=== PATIENT | female | born 1955 | race Caucasian/White ===

== ENCOUNTER 2017-01-07 09:39 | Emergency (ER) | payer OTHER ==
[2017-01-07 10:12] VITALS: BP 132/75
--- NOTE | 2017-01-07 11:38 | UC ---
Respiratory Complaint HPI - HPI Summary HPI Summary: Nasal congestion and constant cough since 3 days ago. Denies fever or trouble breathing. Needs note for work for a couple days. - History of Current Complaint Chief Complaint: UCGeneralIllness Stated Complaint: COUGH Time Seen by Provider: 01/07/17 11:04 Hx Obtained From: Patient ?: No Onset/Duration: Gradual Onset, Lasting Days Timing: Constant Severity Initially: Mild Severity Currently: Moderate Character: Cough: Productive Aggravating Factors: Deep Breaths, Recumbent Position Alleviating Factors: Upright Position Associated Signs And Symptoms: Positive: Nasal Congestion. Negative: Fever, Chills - Allergies/Home Medications Allergies/Adverse Reactions: Allergies Allergy/AdvReac Type Severity Reaction Status Date / Time Codeine Allergy Severe Vomiting Verified 03/04/14 15:59 Diazepam [From Valium] Allergy Severe Vomiting Verified 03/04/14 15:59 Loratadine [From Claritin] Allergy Severe Vomiting Verified 03/04/14 15:59 Amitriptyline Allergy Intermediate Dizziness Verified 03/04/14 15:59 Penicillins Allergy Intermediate Rash Verified 03/04/14 15:59 Home Medications: Home Medications Benzonatate CAP* [Tessalon CAP*] 200 mg 01/07/17 [History] Vitamin E 01/07/17 [History] PMH/Surg Hx/FS Hx/Imm Hx Endocrine History Of: Denies: Diabetes, Thyroid Disease Cardiovascular History Of: Denies: Cardiac Disorders, Hypertension, Pacemaker/ICD Respiratory History Of: Denies: COPD, Asthma GI/ History Of: Denies: Ulcer, Renal Disease Cancer History Of: Reports: Breast Cancer - LEFT BREAST - Surgical History Surgical History: Yes Surgery Procedure, Year, and Place: LEFT BREAST LUMPECTOMY, TONSILECTOMY, APPENDETOMY,EYE MUSCLE SURGERY - Family History Known Family History: Positive: Hypertension - Social History Occupation: Employed Full-time Lives: With Family Alcohol Use: Occasionally Substance Use Type: None Smoking Status (MU): Never Smoked Tobacco Review of Systems Constitutional: Negative Skin: Negative Eyes: Negative ENT: Nasal Discharge Respiratory: Cough Cardiovascular: Negative Gastrointestinal: Negative Genitourinary: Negative Motor: Negative Neurovascular: Negative Musculoskeletal: Negative Neurological: Negative Psychological: Negative All Other Systems Reviewed And Are Negative: Yes Physical Exam Triage Information Reviewed: Yes Appearance: Well-Appearing, No Pain Distress, Well-Nourished Vital Signs: Initial Vital Signs Temp 99.3 F 01/07/17 10:06 Pulse 94 01/07/17 10:06 Resp 18 01/07/17 10:06 BP 132/75 01/07/17 10:06 Pulse Ox 97 01/07/17 10:06 Vital Signs Reviewed: Yes Eye Exam: Normal Eyes: Positive: Conjunctiva Clear ENT: Positive: Hearing grossly normal, Nasal congestion, TMs normal Dental Exam: Normal Neck exam: Normal Neck: Positive: Supple, Nontender, No Lymphadenopathy Respiratory Exam: Other - constant cough Respiratory: Positive: Lungs clear, Normal breath sounds, No respiratory distress Cardiovascular Exam: Normal Cardiovascular: Positive: RRR, No Murmur Musculoskeletal Exam: Normal Neurological Exam: Normal Psychological Exam: Normal Skin Exam: Normal UC Diagnostic Evaluation - Laboratory O2 Sat by Pulse Oximetry: 97 Respiratory Course/Dx - Differential Dx/Diagnosis Provider Diagnoses: acute bronchitis Discharge - Discharge Plan Condition: Stable Disposition: HOME Patient Education Materials: Acute Bronchitis (ED) Forms: *Work Release Referrals: Jaclyn Anguiano MD [Primary Care Provider] - If Needed Additional Instructions: Increase your fluid intake. A cool mist humidifier may make your lungs more comfortable. An expectorant (cough medicine that loosens phlegm) can help. If you smoke, STOP!!! Recovery from bronchitis can be somewhat slow, but you should not have any significant worsening or new fevers. As long as you can breathe easily and you continue to have steady improvement, it is not important how many days it takes you to get better. Call or return if you develop increasing fever, shortness of breath, chest pain , bloody sputum, or otherwise worsen. If you have not improved at all after several days, contact your primary care physician or return here. Use your albuterol inhaler at bedtime and as needed during the day. You should continue to take your tessalon only if they are helping your cough.
== END 2017-01-07 11:30 | disposition home or self-care (01) ==
LOC: UCEAST 09:39
DX: J20.9 Acute bronchitis, unspecified (principal); Z88.5 Allergy status to narcotic agent; Z88.0 Allergy status to penicillin
CPT/HCPCS: 99211; G0463

== ENCOUNTER 2017-11-12 09:09 | Emergency (ER) | payer OTHER ==
[2017-11-12 09:27] VITALS: BP 106/66
--- OUTSIDE RECORDS SUMMARY | 2017-11-12 09:29 | XMS REPORT ---
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 Low 4.8-10.8 Red Blood Count 4.16 10^6/uL 4.0-5.4 Hemoglobin 13.7 g/dL 12.0-16.0 Hematocrit 40.3 % 35-47 Mean Corpuscular Volume 97 fL 80-97 Mean Corpuscular Hemoglobin 33 pg High 27-31 Mean Corpuscular HGB Conc 34 g/dL 31-36 Red Cell Distribution Width 12 % 10.5-15 Platelet Count 222 10^3/uL 150-450 Mean Platelet Volume 9 um3 7.4-10.4 Abs Neutrophils 3.3 10^3/uL 1.5-7.7 Abs Lymphocytes 0.9 10^3/uL Low 1.0-4.8 Abs Monocytes 0.4 10^3/uL 0-0.8 Abs Eosinophils 0.1 10^3/uL 0-0.6 Abs Basophils 0 10^3/uL 0-0.2 Abs Nucleated RBC 0 10^3/uL Granulocyte % 70.3 % 38-83 Lymphocyte % 19.6 % Low 25-47 Monocyte % 8.3 % 1-9 Eosinophil % 1.1 % 0-6 Basophil % 0.7 % 0-2 Nucleated Red Blood Cells % 0.1 Comp Metabolic Panel 08/12/2012 Sodium 140 mmol/L 133-145 Potassium 4.1 mmol/L 3.5-5.0 Chloride 103 mmol/L 101-111 Co2 Carbon Dioxide 30.0 mmol/L 22-32 Anion Gap 7.0 mmol/L 2-11 Glucose 110 mg/dL High 70-100 Blood Urea Nitrogen 9 mg/dL 6-24 Creatinine 0.60 mg/dL 0.50-1.40 BUN/Creatinine Ratio 15.0 8-20 Calcium 9.6 mg/dL 8.1-9.9 Total Protein 5.7 GM/DL Low 6.2-8.1 Albumin 3.7 GM/DL 3.6-5.4 Globulin 2.0 GM/DL 2-4 Albumin/Globulin Ratio 1.9 1-3 Egfr Non- 104.2 >60 Egfr 134.0 >60 11 Total Bilirubin 0.7 mg/dL 0.1-1.0 12 Alkaline Phosphatase 59 U/L 30-110 Alt 12 U/L Low 14-54 Ast 18 U/L 12-42 CBC Auto Diff 05/15/2012 White Blood Count 4.3 CUMM Low 4.8-10.8 Red Cell Count 4.23 CUMM 4.2-5.4 Hemoglobin 13.6 g/dL 12.0-16.0 Hematocrit 40 % 35-47 Mean Corpuscular Volume 95 um3 79-97 Mean Corpuscular Hemoglob 32 pg High 27-31 Mean Corpuscular HGB Cone 34 g/dL 32-36 Redcell Distribution WDTH 12 % 10.5-15 Platelet Count 231 CUMM 150-450 Mean Platelet Volume 9.1 um3 7.4-10.4 Gran % 65.9 % 38-83 Lymph % 23.6 % Low 25-47 Mononuclear % 9.1 % High 1-9 Eosinophil % 1.0 % 0-6 Basophil % 0.4 % 0-2 Abs Lymphs 1.0 1.0-4.8 Abs Mononuclear 0.4 0-0.8 Absolute Neutrophil Count 2.9 1.5-7.7 Abs Eosinophils 0 0-0.6 Abs Basophils 0 0-0.2 Comp Metabolic Panel 05/15/2012 Sodium 140 mmol/L 135-145 Potassium 4.9 mmol/L 3.5-5.0 Chloride 103 mmol/L 101-111 Co2 (Carbon Dioxide) 35.0 mmol/L High 22-32 Anion Gap 2.0 mmol/L 2-11 13 Glucose 91 mg/dL 70-100 BUN 8 mg/dL 6-24 Creatinine 0.7 mg/dL 0.50-1.40 One Over Creatinine 1.42 BUN/Creatinine Ratio 11.4 8-20 Calcium 9.5 mg/dL 8.1-9.9 Total Protein 5.5 GM/DL Low 6.2-8.1 Albumin 3.7 GM/DL 3.6-5.4 Globulin 1.8 GM/DL Low 2-4 Albumin/Globulin Ratio 2.1 1-3 Bilirubin Total 0.6 mg/dL 0.4-1.5 14 Alkaline Phosphatase 68 U/L 30-110 Alt (SGPT) 14 U/L 14-54 Ast (Sgot) 17 U/L 12-42 eGFR Non- 87.2 > 60 eGFR 112.1 > 60 15 Laboratory test finding 05/15/2012 CA 27-29 24.17 U/mL 3.5-38.6 16 CBC Auto Diff 02/03/2012 White Blood Count 4.1 CUMM Low 4.8-10.8 Red Cell Count 4.02 CUMM Low 4.2-5.4 Hemoglobin 13.5 g/dL 12.0-16.0 Hematocrit 39 % 35-47 Mean Corpuscular Volume 96 um3 79-97 Mean Corpuscular Hemoglob 34 pg High 27-31 Mean Corpuscular HGB Cone 35 g/dL 32-36 Redcell Distribution WDTH 12 % 10.5-15 Platelet Count 240 CUMM 150-450 Mean Platelet Volume 8.2 um3 7.4-10.4 Gran % 67.6 % 38-83 Lymph % 21.1 % Low 25-47 Mononuclear % 9.7 % High 1-9 Eosinophil % 1.2 % 0-6 Basophil % 0.4 % 0-2 Abs Lymphs 0.9 Low 1.0-4.8 Abs Mononuclear 0.4 0-0.8 Absolute Neutrophil Count 2.8 1.5-7.7 Abs Eosinophils 0.1 0-0.6 Abs Basophils 0 0-0.2 Comp Metabolic Panel 02/03/2012 Sodium 137 mmol/L 135-145 Potassium 3.9 mmol/L 3.5-5.0 Chloride 107 mmol/L 101-111 Co2 (Carbon Dioxide) 28.0 mmol/L 22-32 Anion Gap 2.0 mmol/L 2-11 17 Glucose 83 mg/dL 70-100 BUN 11 mg/dL 6-24 Creatinine 0.5 mg/dL Low 0.50-1.40 One Over Creatinine 2.00 BUN/Creatinine Ratio 22.0 High 8-20 Calcium 8.7 mg/dL 8.1-9.9 Total Protein 5.5 GM/DL Low 6.2-8.1 Albumin 3.8 GM/DL 3.6-5.4 Globulin 1.7 GM/DL Low 2-4 Albumin/Globulin Ratio 2.2 1-3 Bilirubin Total 0.9 mg/dL 0.4-1.5 18 Alkaline Phosphatase 50 U/L 30-110 Alt (SGPT) 17 U/L 14-54 Ast (Sgot) 21 U/L 12-42 eGFR Non- 128.6 > 60 eGFR 165.4 > 60 19 Laboratory test finding 02/03/2012 CA 27-29 22.84 U/mL 3.5-38.6 20 Ua - Non Micro (Fma) 12/20/2011 Appearance CLEAR Color YELLOW Glucose NEG Bilirubin NEG Ketones NEG SP Grav <=1.005 Blood NEG PH 5.5 Protein NEG Urobil 0.2 Nitrite NEG Leukocytes (Fma/CMC/Centrex) NEG Comp Metabolic Panel 10/28/2011 Sodium 137 mmol/L 135-145 Potassium 3.8 mmol/L 3.5-5.0 Chloride 101 mmol/L 101-111 Co2 (Carbon Dioxide) 31.0 mmol/L 22-32 Anion Gap 5.0 mmol/L 2-11 21 Glucose 78 mg/dL 70-100 BUN 12 mg/dL 6-24 Creatinine 0.6 mg/dL 0.50-1.40 One Over Creatinine 1.66 BUN/Creatinine Ratio 20.0 8-20 Calcium 9.1 mg/dL 8.1-9.9 Total Protein 6.2 GM/DL 6.2-8.1 Albumin 3.9 GM/DL 3.6-5.4 Globulin 2.3 GM/DL 2-4 Albumin/Globulin Ratio 1.7 1-3 Bilirubin Total 0.7 mg/dL 0.4-1.5 22 Alkaline Phosphatase 50 U/L 30-110 Alt (SGPT) 16 U/L 14-54 Ast (Sgot) 23 U/L 12-42 eGFR Non- 104.2 > 60 eGFR 134.0 > 60 23 Laboratory test finding 10/28/2011 FSH 51.52 MIU/ML 24 Lutenizing Hormone 25.38 MIU/ML 25 Estradiol < 20 pg/mL 26 Laboratory test finding 08/05/2011 CA 27-29 18.89 U/ml 3.5-38.6 27 Comp Metabolic Panel 08/05/2011 Sodium 140 mmol/L 135-145 Potassium 3.8 mmol/L 3.5-5.0 Chloride 107 mmol/L 101-111 Co2 (Carbon Dioxide) 27.0 mmol/L 22-32 Anion Gap 6.0 mmol/L 2-11 28 Glucose 92 mg/dL 70-100 BUN 9 mg/dL 6-24 Creatinine 0.6 mg/dL 0.50-1.40 One Over Creatinine 1.66 BUN/Creatinine Ratio 15.0 8-20 Calcium 8.6 mg/dL 8.1-9.9 Total Protein 5.4 GM/DL Low 6.2-8.1 Albumin 3.6 GM/DL 3.6-5.4 Globulin 1.8 GM/DL Low 2-4 Albumin/Globulin Ratio 2.0 1-3 Bilirubin Total 0.6 mg/dL 0.4-1.5 29 Alkaline Phosphatase 56 U/L 30-110 Alt (SGPT) 14 U/L 14-54 Ast (Sgot) 20 U/L 12-42 eGFR Non- 104.6 > 60 eGFR 134.5 > 60 30 CBC With Manual Diff 08/05/2011 White Blood Count 3.8 CUMM Low 4.8-10.8 Red Cell Count 4.11 CUMM Low 4.2-5.4 Hemoglobin 13.7 g/dL 12.0-16.0 Hematocrit 40 % 35-47 Mean Corpuscular Volume 97 um3 79-97 Mean Corpuscular Hemoglob 33 pg High 27-31 Mean Corpuscular HGB Cone 34 g/dL 32-36 Redcell Distribution WDTH 13 % 10.5-15 Platelet Count 177 CUMM 150-450 Mean Platelet Volume 8.4 um3 7.4-10.4 Polysegmented Neutrophil 55 % 38-83 Band Neutrophil 1 % 0-8 Lymphocyte 27 % 25-47 Monocyte 10 % 0-13 Eosinophil 5 % 0-6 Atypical Lymph 2 % 0-6 Absolute Neutrophil Count 2.1 Anisocytosis SLIGHT (HCG) Urine 03/14/2011 Specific [place] 1.019 1.010-1.030 Urine NEGATIVE Negative 31 Surgical Pathology 01/17/2011 Surgical <SEE 32 Pathology NOTE> Comprehensive 12/19/2010 Albumin 4.3 g/dL 3.8-5.5 Metabolic Prof Alk. Phos. 56 U/L 30-110 Alt (SGPT) 11 U/L 7-35 Ast (Sgot) 16 U/L 5-34 BUN 11 mg/dL 6-26 Calcium 9.5 mg/dL 8.6-10.2 Chloride 100 mEq/L 94-112 Creatinine 0.6 mg/dL 0.6-1.4 Carbon Dioxide 26 mEq/L 21-32 Glucose 101 mg/dL 70-105 Sodium 137 mEq/L 134-149 Total Bilirubin 0.6 mg/dL 0.2-1.3 Total Protein 6.3 g/dL 6.3-8.1 Potassium 4.2 mEq/L 3.6-5.5 Globulin 2.0 g/dL 2.0-4.8 A/G Ratio 2.1 Calc 0.6-2.2 BUN/Creat Ratio 18.6 Calc 8.0-36.0 Lipid Profile 12/19/2010 Cholesterol 188 mg/dL 120-200 HDL 66 mg/dL 30-85 Triglycerides 94 mg/dL 30-200 HDL Risk Factor 2.9 CALC Low 4.2-7.0 LDL (Calculated) 104 CALC 0-129 VLDL (Calculated) 19 mg/dL 0-50 Laboratory test finding 12/19/2010 TSH 3.94 mIU/L 0.50-6.00 CBC Electronic ([facility]) 12/19/2010 WBC 5.1 3.6-9.6 RBC 4.67 3.90-5.70 Hemoglobin (Fma/CMC/CTX) 15.3 g/dL 12.1 - 17.2 Hematocrit (Fma/CMC/CTX) 45.0 % 36.1 - 50.3 Platelets 230 10^3/ul 150-400 Lymph% 23.0 20.5-51.1 Mixed% 6.2 Neutrophils % 70 Mean Corpuscular Vol 96 82.2-97.4 Mean Corpuscular Hemoglobin 32.7 27.6-33.3 Mean Corpuscular Hemo Concen 33.9 32.0-36.0 RDW 10.8 Low 11.6-13.7 Mean Platelet Volume 7.2 6.5-11.0 Ua - Micro ([facility]) 12/07/2010 Appearance CLEAR Color YELLOW Glucose NEG Bilirubin NEG Ketones NEG SP Grav 1.015 Blood NEG PH 7.0 Protein NEG Urobil 0.2 Nitrite NEG Leukocytes (Fma/CMC/Centrex) SMALL Hyaline - /Lpf Granular - /Lpf WBC (a,Centrex) 8-12 RBC 0-1 Mucus - /Lpf Epith OCCASS /Lpf Bacteria RARE /Hpf Amorphous - /Lpf Crystals, Fluid (Fma/CMC/CTX) - Z#Comments - Laboratory test 12/07/2010 Thin Prep W/HPV(Lsil/ROSA MARIA/Asc) SEE NOTE 33 finding Comp Metabolic Panel 08/13/2010 Sodium 139 mmol/L 135-145 Potassium 3.7 mmol/L 3.5-5.0 Chloride 103 mmol/L 101-111 Co2 (Carbon Dioxide) 29.0 mmol/L 22-32 Anion Gap 7.0 mmol/L 2-11 34 Glucose 93 mg/dL 70-100 35 BUN 5 mg/dL Low 6-24 Creatinine 0.60 mg/dL 0.50-1.40 One Over Creatinine 1.60 BUN/Creatinine Ratio 8.3 8-20 Calcium 9.5 mg/dL 8.1-9.9 Total Protein 6.2 GM/DL 6.2-8.1 Albumin 4.1 GM/DL 3.6-5.4 Globulin 2.1 GM/DL 2-4 Albumin/Globulin Ratio 2.0 1-3 Bilirubin Total 0.7 mg/dL 0.4-1.5 36 Alkaline Phosphatase 54 U/L 30-110 Alt (SGPT) 17 U/L 14-54 Ast (Sgot) 19 U/L 12-42 eGFR Non- 111.6 > 60 eGFR 135.0 > 60 37 Laboratory test finding 08/13/2010 CA 27-29 22.50 U/ml 3.5-38.6 38 HCG () Urine Stat 01/25/2010 Specific [place] 1.014 1.010-1.030 Urine NEGATIVE Negative 39 CBC With Manual Diff 12/27/2009 White Blood Count 8.7 CUMM 4.8-10.8 Red Cell Count 4.75 CUMM 4.2-5.4 Hemoglobin 15.0 g/dL 12.0-16.0 Hematocrit 45 % 35-47 Mean Corpuscular Volume 94 um3 79-97 Mean Corpuscular Hemoglob 32 pg High 27-31 Mean Corpuscular HGB Cone 34 g/dL 32-36 Redcell Distribution WDTH 13 % 10.5-15 Platelet Count 286 CUMM 150-450 Mean Platelet Volume 7.5 um3 7.4-10.4 Polysegmented Neutrophil 67 % 38-83 Lymphocyte 28 % 25-47 Monocyte 4 % 0-13 Eosenophil 1 % 0-6 Absolute Neutrophil Count 5.8 RBC Morphology NORMAL Comp Metabolic Panel 12/27/2009 Sodium 139 mmol/L 135-145 Potassium 4.2 mmol/L 3.5-5.0 Chloride 105 mmol/L 101-111 Co2 (Carbon Dioxide) 28.0 mmol/L 22-32 Anion Gap 6.0 mmol/L 2-11 40 Glucose 91 mg/dL 70-100 41 BUN 8 mg/dL 6-24 Creatinine 0.70 mg/dL 0.50-1.40 One Over Creatinine 1.40 BUN/Creatinine Ratio 11.4 8-20 Calcium 9.7 mg/dL 8.1-9.9 42 Total Protein 6.2 GM/DL 6.2-8.1 Albumin 4.3 GM/DL 3.6-5.4 Globulin 1.9 GM/DL Low 2-4 Albumin/Globulin Ratio 2.3 1-3 Bilirubin Total 0.7 mg/dL 0.4-1.5 43 Alkaline Phosphatase 42 U/L 30-110 Alt (SGPT) 11 U/L Low 14-54 Ast (Sgot) 17 U/L 12-42 eGFR Non- 93.4 > 60 eGFR 113.0 > 60 44 Laboratory test finding 12/27/2009 CA 27-29 22.7 U/mL <=38.0 45 Surgical Pathology 12/04/2009 Surgical Pathology 46 <SEE NOTE> 1 FASTING 2 Assay by Chemiluminescence microparticle immunoassay on the [employer]. Values obtained with different methods or kits cannot be used interchangeably for patient monitoring. Results cannot be interpreted as absolute evidence of the presence or absence of malignancy. The test is not interpretable in . 3 Because ethnic data is not always readily available, this report includes an eGFR for both -Americans and non- Americans. The National Kidney Disease Education Program (NKDEP) does not endorse the use of the MDRD equation for patients that are not between the ages of 18 and 70, are , have extremes of body size, muscle mass, or nutritional status, or are non- or non-. According to the National Kidney Foundation, irrespective of diagnosis, the stage of the disease is based on the level of kidney function: Stage Description GFR(mL/min/1.73 m(2)) 1 Kidney damage with normal or decreased GFR 90 2 Kidney damage with mild decrease in GFR 60-89 3 Moderate decrease in GFR 30-59 4 Severe decrease in GFR 15-29 5 Kidney failure <15 (or dialysis) 4 Assay by Chemiluminescence microparticle immunoassay on the [employer]. Values obtained with different methods or kits cannot be used interchangeably for patient monitoring. Results cannot be interpreted as absolute evidence of the presence or absence of malignancy. The test is not interpretable in . 5 Because ethnic data is not always readily available, this report includes an eGFR for both -Americans and non- Americans. The National Kidney Disease Education Program (NKDEP) does not endorse the use of the MDRD equation for patients that are not between the ages of 18 and 70, are , have extremes of body size, muscle mass, or nutritional status, or are non- or non-. According to the National Kidney Foundation, irrespective of diagnosis, the stage of the disease is based on the level of kidney function: Stage Description GFR(mL/min/1.73 m(2)) 1 Kidney damage with normal or decreased GFR 90 2 Kidney damage with mild decrease in GFR 60-89 3 Moderate decrease in GFR 30-59 4 Severe decrease in GFR 15-29 5 Kidney failure <15 (or dialysis) 6 Because ethnic data is not always readily available, this report includes an eGFR for both -Americans and non- Americans. The National Kidney Disease Education Program (NKDEP) does not endorse the use of the MDRD equation for patients that are not between the ages of 18 and 70, are , have extremes of body size, muscle mass, or nutritional status, or are non- or non-. According to the National Kidney Foundation, irrespective of diagnosis, the stage of the disease is based on the level of kidney function: Stage Description GFR(mL/min/1.73 m(2)) 1 Kidney damage with normal or decreased GFR 90 2 Kidney damage with mild decrease in GFR 60-89 3 Moderate decrease in GFR 30-59 4 Severe decrease in GFR 15-29 5 Kidney failure <15 (or dialysis) 7 RUN DATE: 12/23/12 [facility] LAB LIVE PAGE 1 RUN TIME: [address] [place], [place] [address] Specimen Inquiry Name: YOTAE T : [address]: Jaclyn Anguiano MD Acct: [id number] Unit: [id number] AGE: 57 Location: [facility] Re12/21/12 SEX: F Status: REG REF SPEC: [id number] YADIRA: 12/21/[address] [facility] [address]: Jaclyn Anguiano MD REQ: [id number] RECD: 12/23/12 STATUS: SOUT _ ORDERED: IMAGE ANALYSIS FINAL DIAGNOSIS Negative for Intraepithelial lesion or Malignancy A. Ectocervical/Endocervical Specimen Adequacy: Satisfactory of evaluation Transformation zone component cannot be definitely identified due to presence of atrophy or other hormonal changes Patient Information: HPV: Thin Layer Pap Test w/reflex to high risk HPV DNA testing when ASCUS Actual Specimen Date: 12/21/12 Spec Date if unknown: 11/2010 Cautery: N IUD: N Lesion, grossly demonstrate: N Radiation Y/N? Y ?: N Post Menopausal?: Y Hysterectomy?: N Previous Abnormal Pap Smears?:Y If Yes, enter Diagnosis: long ago, done elsewhere, dx unknown Other Pertinent History: radiation for left breast cancer, 06/2010 Signed (signature on file) Tali Griffin, CT (ASCP) 12/23/12 1147 This Pap test was evaluated with the assistance of the [employer] Test Imaging System. Due to cytologic findings at the staff air defense officer microscope, comprehensive manual rescreening by a Conveyor Weigher Operator may be required. The Pap Smear is a screening test designed to aid in the detection of premalignant and malignant conditions of the uterine cervix. It is not a diagnostic procedure and should not be used as the sole means of detecting cervical cancer. Both false- positive and false- negative reports do occur. Depending on your risk status, a Pap smear shoudl be obtained and evaluated every 1-3 years. END OF REPORT * ML=Testing performed at Main Lab DEPARTMENT OF PATHOLOGY, [address] [place] [address] Gonzalo Lux M.D. Director [facility] Permit #[id number] 8 Because ethnic data is not always readily available, this report includes an eGFR for both -Americans and non- Americans. The National Kidney Disease Education Program (NKDEP) does not endorse the use of the MDRD equation for patients that are not between the ages of 18 and 70, are , have extremes of body size, muscle mass, or nutritional status, or are non- or non-. According to the National Kidney Foundation, irrespective of diagnosis, the stage of the disease is based on the level of kidney function: Stage Description GFR(mL/min/1.73 m(2)) 1 Kidney damage with normal or decreased GFR 90 2 Kidney damage with mild decrease in GFR 60-89 3 Moderate decrease in GFR 30-59 4 Severe decrease in GFR 15-29 5 Kidney failure <15 (or dialysis) 9 Assay by Chemiluminescence microparticle immunoassay on the [employer]. Values obtained with different methods or kits cannot be used interchangeably for patient monitoring. Results cannot be interpreted as absolute evidence of the presence or absence of malignancy. The test is not interpretable in . 10 Assay by Chemiluminescence microparticle immunoassay on the [employer]. Values obtained with different methods or kits cannot be used interchangeably for patient monitoring. Results cannot be interpreted as absolute evidence of the presence or absence of malignancy. The test is not interpretable in . 11 Because ethnic data is not always readily available, this report includes an eGFR for both -Americans and non- Americans. The National Kidney Disease Education Program (NKDEP) does not endorse the use of the MDRD equation for patients that are not between the ages of 18 and 70, are , have extremes of body size, muscle mass, or nutritional status, or are non- or non-. According to the National Kidney Foundation, irrespective of diagnosis, the stage of the disease is based on the level of kidney function: Stage Description GFR(mL/min/1.73 m(2)) 1 Kidney damage with normal or decreased GFR 90 2 Kidney damage with mild decrease in GFR 60-89 3 Moderate decrease in GFR 30-59 4 Severe decrease in GFR 15-29 5 Kidney failure <15 (or dialysis) 12 A metabolite of Naproxen, O-desmethylnaproxen, has been shown to interfere with the [facility] [facility] method for measuring total bilirubin. Samples from patients who have taken Naproxen have shown spurious elevation in total bilirubin levels. 13 Anion gap measurement may be of limited value in the presence of any alkalosis, especially in a combined acid base disorder. . 14 A metabolite of Naproxen, O-desmethylnaproxen, has been shown to interfere with the [place] method for measuring total bilirubin. Samples from patients who have taken Naproxen have shown spurious elevation in total bilirubin levels. 15 Because ethnic data is not always readily available, this report includes an eGFR for both -Americans and non- Americans. The National Kidney Disease Education Program (NKDEP) does not endorse the use of the MDRD equation for patients that are not between the ages of 18 and 70, are , have extremes of body size, muscle mass, or nutritional status, or are non- or non-. According to the National Kidney Foundation, irrespective of diagnosis, the stage of the disease is based on the level of kidney function: Stage Description GFR(mL/min/1.73 m(2)) 1 Kidney damage with normal or decreased GFR 90 2 Kidney damage with mild decrease in GFR 60-89 3 Moderate decrease in GFR 30-59 4 Severe decrease in GFR 15-29 5 Kidney failure <15 (or dialysis) 16 Assay by chemiluminescence microparticle immunoassay on the [employer]. Values obtained with different methods or kits cannot be used interchangeably for patient monitoring. Results cannot be interpreted as absolute evidence of the presence or absence of malignancy. The test is not interpretable in . 17 Anion gap measurement may be of limited value in the presence of any alkalosis, especially in a combined acid base disorder. . 18 A metabolite of Naproxen, O-desmethylnaproxen, has been shown to interfere with the Jendrassik-[place]ula method for measuring total bilirubin. Samples from patients who have taken Naproxen have shown spurious elevation in total bilirubin levels. 19 Because ethnic data is not always readily available, this report includes an eGFR for both -Americans and non- Americans. The National Kidney Disease Education Program (NKDEP) does not endorse the use of the MDRD equation for patients that are not between the ages of 18 and 70, are , have extremes of body size, muscle mass, or nutritional status, or are non- or non-. According to the National Kidney Foundation, irrespective of diagnosis, the stage of the disease is based on the level of kidney function: Stage Description GFR(mL/min/1.73 m(2)) 1 Kidney damage with normal or decreased GFR 90 2 Kidney damage with mild decrease in GFR 60-89 3 Moderate decrease in GFR 30-59 4 Severe decrease in GFR 15-29 5 Kidney failure <15 (or dialysis) 20 Assay by chemiluminescence microparticle immunoassay on the [employer]. Values obtained with different methods or kits cannot be used interchangeably for patient monitoring. Results cannot be interpreted as absolute evidence of the presence or absence of malignancy. The test is not interpretable in . 21 Anion gap measurement may be of limited value in the presence of any alkalosis, especially in a combined acid base disorder. . 22 A metabolite of Naproxen, O-desmethylnaproxen, has been shown to interfere with the Jendrassik-Manjula method for measuring total bilirubin. Samples from patients who have taken Naproxen have shown spurious elevation in total bilirubin levels. 23 Because ethnic data is not always readily available, this report includes an eGFR for both -Americans and non- Americans. The National Kidney Disease Education Program (NKDEP) does not endorse the use of the MDRD equation for patients that are not between the ages of 18 and 70, are , have extremes of body size, muscle mass, or nutritional status, or are non- or non-. According to the National Kidney Foundation, irrespective of diagnosis, the stage of the disease is based on the level of kidney function: Stage Description GFR(mL/min/1.73 m(2)) 1 Kidney damage with normal or decreased GFR 90 2 Kidney damage with mild decrease in GFR 60-89 3 Moderate decrease in GFR 30-59 4 Severe decrease in GFR 15-29 5 Kidney failure <15 (or dialysis) 24 NORMAL RANGE MALES 1 - 20 NORMALLY MENSTRUATING FEMALES - Follicular Phase 3 - 9 - Mid-Cycle Peak 4 - 23 - Luteal Phase 1 - 6 POSTMENOPAUSAL FEMALES 16 - 114 . 25 NORMAL RANGE MALES 2 - 12 NORMALLY MENSTRUATING FEMALES - Follicular Phase 1 - 18 - Mid-Cycle Peak 24 - 105 - Luteal Phase 0.6 - 20 POSTMENOPAUSAL FEMALES 15 - 62 . 26 EXPECTED RESULTS (pg/ml) MALES 20-75 POSTMENOPAUSAL FEMALES 20-88 NON FEMALES Mid-Follicular Phase 24-114 Periovulatory 62-534 Mid Luteal Phase 80-273 27 ASSAY BY CHEMILUMINESCENCE MICROPARTICLE IMMUNOASSAY ON THE [employer]. VAKUES OBTAINED WITH DIFFERENT METHODS OR KITS CANNOT BE USED INTERCHANGEABLY FOR PATIENT MONITORING. RESULTS CANNOT BE INTERPRETED ABSOLUTE EVIDENCE OF THE PRESENCE OR ABSENCE OF MALIGNANCY. THE TEST IS NOT INTERPRETABLE IN . 28 Anion gap measurement may be of limited value in the presence of any alkalosis, especially in a combined acid base disorder. . 29 A metabolite of Naproxen, O-desmethylnaproxen, has been shown to interfere with the Jendrassik-Manjula method for measuring total bilirubin. Samples from patients who have taken Naproxen have shown spurious elevation in total bilirubin levels. 30 Because ethnic data is not always readily available, this report includes an eGFR for both -Americans and non- Americans. The National Kidney Disease Education Program (NKDEP) does not endorse the use of the MDRD equation for patients that are not between the ages of 18 and 70, are , have extremes of body size, muscle mass, or nutritional status, or are non- or non-. According to the National Kidney Foundation, irrespective of diagnosis, the stage of the disease is based on the level of kidney function: Stage Description GFR(mL/min/1.73 m(2)) 1 Kidney damage with normal or decreased GFR 90 2 Kidney damage with mild decrease in GFR 60-89 3 Moderate decrease in GFR 30-59 4 Severe decrease in GFR 15-29 5 Kidney failure <15 (or dialysis) 31 If is still suspected, please repeat test after 48 to 72 hours. . 32 ---- RUN DATE: 01/21/11 [facility] NMI LIVE PAGE 1 RUN TIME: 1156 Specimen Inquiry RUN USER: INTERFACE -- Name: TAE RAM Status: REG REF Re01/17/11 Age/Sex: 55/F Unit#: [id number] Location: [address] [place] [address].O.B. : 59 -- Specimen: [id number] SOUT Spec Date: 01/17/[address]: Vince boyer MD Spec Type: SURGICAL P Received: 01/18/1148 Copies to: Africa ramos MD SPECIMEN CECAL BIOPSY HISTORY POST-OP DIAGNOSIS: Small polyp removed. CLINICAL INFORMATION: Screening colonoscopy. Colonoscopy to terminal ile um - prep good, small cecal polyp removed. GROSS DESCRIPTION The specimen is received in formalin labelled Tae Ram, Cecal Biopsy, and consists of one yellow tissue fragment measuring 0.2 x 0.3 x 0.2 cm. Submitted entirely, one cassette. DIAGNOSIS Colon, cecum, biopsy: Large intestinal mucosa with prominent lymphoid aggregate. Signed Electronically by: GONZALO LUX MD 01/21/11 1156 -- -- DEPARTMENT OF PATHOLOGY, [address] [place] [address] [facility] Permit #[id number] Micheline Romo M.D. Computer Systems Hardware Analyst Dir baumann -- [employer] DEPARTMENT OF PATHOLOGY or Extension [phone] MEDICAL PHYSICS TEACHER CYTOLOGY REPORT PATIENT: TAE RAM : 1955 AGE: 55 Y SEX: F ACCT: [id number] PROCEDURE DATE: 12/07/2010 DATE RECEIVED: 12/10/2010 REQUESTING PHYSICIAN: AFRICA GODINEZ MD LOCATION: [facility] Case No. [id number] CORRECTED REPORT: PREVIOUS REPORT HAD INCORRECT PROCEDURE DATE. KDK 12/10/10 PATIENT DATA: [id number] SPECIMEN SUBMITTED: * * (HPVII) THIN PREP W/HPV (LSIL/ASC/ROSA MARIA) * * ENDOCERVICAL RELEVANT HISTORY: LMP: ??/2009 Contraceptive: NONE Prev.normal: 2004 Comment: PREMENOPAUAL SPECIMEN ADEQUACY SATISFACTORY FOR EVALUATION, ENDOCERVICAL TRANSFORMATION ZONE COMPONENT PRESENT GENERAL CATEGORIZATION NEGATIVE FOR INTRAEPITHELIAL LESIONS OR MALIGNANCY ADDITIONAL COPIES SENT TO: Screened/Rescreened Electronically Signed Sign Out Date/Time: by: by: GORDON DAILEY, 12/10/2010 16:30 CT(ASCP) Thin Prep Pap tests are examined with an FDA-approved location-guidance system (20980). Performed @ [facility] [employer] [address] [place] [address] 34 Anion gap measurement may be of limited value in the presence of any alkalosis, especially in a combined acid base disorder. . 35 Note change in reference range as of 06/30/08. The change was based on recommendations from the [place] Diabetes Association. 36 A metabolite of Naproxen, O-desmethylnaproxen, has been shown to interfere with the Jendrassik-Manjula method for measuring total bilirubin. Samples from patients who have taken Naproxen have shown spurious elevation in total bilirubin levels. 37 Because ethnic data is not always readily available, this report includes an eGFR for both -Americans and non- Americans. The National Kidney Disease Education Program (NKDEP) does not endorse the use of the MDRD equation for patients that are not between the ages of 18 and 70, are , have extremes of body size, muscle mass, or nutritional status, or are non- or non-. According to the National Kidney Foundation, irrespective of diagnosis, the stage of the disease is based on the level of kidney function: Stage Description GFR(mL/min/1.73 m(2)) 1 Kidney damage with normal or decreased GFR 90 2 Kidney damage with mild decrease in GFR 60-89 3 Moderate decrease in GFR 30-59 4 Severe decrease in GFR 15-29 5 Kidney failure <15 (or dialysis) 38 ASSAY BY CHEMILUMINESCENCE MICROPARTICLE IMMUNOASSAY ON THE [employer] ADVIA CENTAUR. VAKUES OBTAINED WITH DIFFERENT METHODS OR KITS CANNOT BE USED INTERCHANGEABLY FOR PATIENT MONITORING. RESULTS CANNOT BE INTERPRETED ABSOLUTE EVIDENCE OF THE PRESENCE OR ABSENCE OF MALIGNANCY. THE TEST IS NOT INTERPRETABLE IN . 39 If is still suspected, please repeat test after 48 to 72 hours. . 40 Anion gap measurement may be of limited value in the presence of any alkalosis, especially in a combined acid base disorder. . 41 Note change in reference range as of 06/30/08. The change was based on recommendations from the [place] Diabetes Association. 42 Please note change in reference range effective 08 . 43 A metabolite of Naproxen, O-desmethylnaproxen, has been shown to interfere with the [place]endrassik-[place] method for measuring total bilirubin. Samples from patients who have taken Naproxen have shown spurious elevation in total bilirubin levels. 44 Because ethnic data is not always readily available, this report includes an eGFR for both -Americans and non- Americans. The National Kidney Disease Education Program (NKDEP) does not endorse the use of the MDRD equation for patients that are not between the ages of 18 and 70, are , have extremes of body size, muscle mass, or nutritional status, or are non- or non-. According to the National Kidney Foundation, irrespective of diagnosis, the stage of the disease is based on the level of kidney function: Stage Description GFR(mL/min/1.73 m(2)) 1 Kidney damage with normal or decreased GFR 90 2 Kidney damage with mild decrease in GFR 60-89 3 Moderate decrease in GFR 30-59 4 Severe decrease in GFR 15-29 5 Kidney failure <15 (or dialysis) 45 The testing method is a chemiluminometric immunoassay manufactured by [employer] and performed on the [employer] Adv[employer] Centaur. Values obtained with different assay methods or kits may be different and cannot be used interchangeably. Test results cannot be interpreted as absolute evidence for the presence or absence of malignant disease. Test Performed by: [facility] Dpt of Lab Med and Pathology [address] [place] [address] [place] [address] Dermatopathologist: Diallo Villa III, M.D. 46 ---- RUN DATE: 12/18/09 [facility] NMI LIVE PAGE 1 RUN TIME: 927 Specimen Inquiry RUN USER: INTERFACE -- Name: TAE RAM Status: REG REF Re12/04/09 Age/Sex: 54/F Unit#: [id number] [facility] -- Specimen: [id number] SOUT Spec Date: 12/04/[address]: Africa Hernandez MD Spec Type: SURGICAL P Received: 12/05/09 Copies to: Imelda fischer MD SPECIMEN 1) ULTRASOUND GUIDED CORE BIOPSY SAMPLE OF THE LEFT BREAST ELEVEN O'CLOCK POSITION 2) ULTRASOUND GUIDED CORE BIOPSY SAMPLE OF THE LEFT BREAST NINE O'CLOCK POSITION HISTORY CLINICAL INFORMATION: 1) Left breast nodule which shadows and is hypoecho ic with irregular margins measuring 1.2 x 1.7 x 1.1 cm 2) Left breast nodule w hich shadows and is hypoechoic with irregular margins measuring 2.3 x 1.7 x 1.6 cm GROSS DESCRIPTION 1) Specimen received in formalin labelled Tae Sundance, Breast Biopsy Eleven O'clock and consists of several, cylindrical, fibroadipose cores measuring in aggregate 1.5 x 0.8 x 0.4 cm. Submitted entirely, one cassette labelled one. 2) Specimen received in formalin labelled Tae Yo, Breast Biopsy Nine O'clock and consists of two, cylindrical fragments of fibroadipose tissue each measuring 2.0 x 0.3 x 0.3 cm. Submitted entirely, one cassette labelled two. DIAGNOSIS 1) Breast, left, eleven o'clock, ultrasound guided biopsy: A. Invasive ductal carcinoma. 1. Size: Atleast 0.7 cm. 2. Tumor extent distribution: Invasive ductal carcinoma is seen in three of three cores submitted, occupying the majority of the core volume. 3. Estimated Sadi Grade: a. Estimated Tubule Formation: 3. b. Estimated Nuclear Grade: 3. c. Estimated Mitotic Count: 1. Combined Sadi Histologic Grade: 2 (7/9 points). 4. Lymphatic/vascular invasion: Not seen. -- DEPARTMENT OF PATHOLOGY, [address] [place] [address] [facility] Permit #[id number] Gonzalo Lux M.D. Director Omar Servin M.D. Computer Systems Hardware Analyst Dir ibis -- -- RUN DATE: 12/18/09 [facility] NMI LIVE PAGE 2 RUN TIME: 927 Specimen Inquiry RUN USER: INTERFACE -- Name: TAE RAM Status: REG REF Re12/04/09 Age/Sex: 54/F Unit#: [id number] Location: [address] [place] [address]. : [birth year] -- -- CONTINUED -- DIAGNOSIS (Continued) 5. Perineural invasion: Not seen. 6. Necrosis: Focally present. B. Ductal carcinoma in situ (DCIS): Not seen. C. ER/KS and Her2/Blanche by immunohistochemistry with appropriate controls: 1. ER: Strongly posistive, in 80-90% cells. 2. KS: Positive in 80% cells. 3. Her2/Blanche: Pending. D. Microcalcifications: Not seen. E. Other findings: None. F. Predicted TNM Histopathological Stage: Atleast pT1bNX. 2) Breast, left, nine o'clock, ultrasound guided biopsy: A. Invasive ductal carcinoma. 1. Size: Atleast 1.1 cm. 2. Tumor extent distribution: Invasive ductal carcinoma is seen in two of two cores submitted, occupying the majority of the core volume. 3. Estimated Sadi Grade: a. Estimated Tubule Formation: 3. b. Estimated Nuclear Grade: 3. c. Estimated Mitotic Count: 1. Combined Sadi Histologic Grade: 2 (7/9 points). 4. Lymphatic/vascular invasion: Not seen. 5. Perineural invasion: Not seen. B. 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 1. Size: 0.2 cm. 2. Extent and Distribution: Focally seen. 3. Architectural Pattern: Solid. 4. Nuclear Grade: 3. 5. Necrosis: Present, comedo necrosis. C. ER/KS and Her2/Blanche by immunohistochemistry with appropriate controls: 1. ER: Strongly positive in 80% cells. 2. KS: Positive in 70% cells. 3. Her2/Blanche: Pending. D. Microcalcifications: Present in association with a dilated benign duct, but not with invasive or in situ malignancy. E. Other findings None. F. Predicted TNM Histopathological Stage: atleast pT1cNx. -- DEPARTMENT OF PATHOLOGY, [address] [place] [address] [facility] Permit #[id number] Gonzalo Lux M.D. Director Omar Servin M.D. Computer Systems Hardware Analyst Dir ibis -- -- RUN DATE: 12/18/09 [facility] NMI LIVE PAGE 3 RUN TIME: 927 Specimen Inquiry RUN USER: INTERFACE -- Name: TAE RAM Status: REG REF Re12/04/09 Age/Sex: 54/F Unit#: [id number] Location: [address] [place] [address]. : [birth year] -- -- CONTINUED -- ADDENDUM Addendum #1 Entered: 12/08/093519 The following immunohistochemical stains were performed at [facility] ([place], [place]) with appropriate controls and interpreted by [facility]: Her2/Blanche (Herceptest): Indeterminant (2+) on both parts 1 and 2. FISH will be performed and the results will be given in addendum. Addendum Review (signature on file) OMAR SERVIN 12/08/09 -- Addendum #2 Entered: 12/18/09 1) Her2/Blanche by FISH has been performed at [facility] in [place], [place]. The testing reveals: Patient Name: TAE RAM Collection Date: 12/04/2009 Ordering Physician: Omar Servin Received Date: 12/12/2009 Treating Physician: Eliza Report Date: 12/15/2009 Ordering Facility: [facility] Ref #: [id number] Specimen ID #: [id number] Date of ,Sex: 1955, F Fluorescence in situ Hybridization (FISH) Report HER-2/blanche Result: NOT AMPLIFIED The Her-2/lashell 17 ratio=1.0 Specimen Site/Type: Breast Tissue Specimen Fixative Type: Formalin Duration of Fixation: 12 hours Indication for Study: Evaluate for Her-2/blanche Gene Amplification -- DEPARTMENT OF PATHOLOGY, [address] [place] [address] [facility] Permit #[id number] Gonzalo Lux M.D. Director Micheline Haines ibis -- -- RUN DATE: 12/18/09 [facility] NMI LIVE PAGE 4 RUN TIME: 927 Specimen Inquiry RUN USER: INTERFACE -- Name: TAE RAM Status: REG REF Re12/04/09 Age/Sex: 54/F Unit#: [id number] Location: [facility] : [birth year] -- -- CONTINUED -- ADDENDUM (Continued) The average of Her-2/blanche copies per tile: 4.2 The average of cen17 copies per tile: 4.3 The cutoff point for assessing Her-2/blanche gene amplification is a Her-2/cen17 ratio greater than 2.2. The specimen is considered NOT AMPLIFIED for the Her-2/blanche gene. A total of 315 tiles from this patient's tissue were analyzed by the [employer] Auto[employer]ysion System and were sufficient for analysis. FISH was performed using the [employer]? HER-2 DNA Probe Kit. Probe Name Detection Parameters Result [facility] PathVysion amplification of the HER-2 gene NOT AMPLIFIED nuc ruthann(D17Z1,HER-2)x4 2) Her2/Blanche by FISH has been performed at [facility] in [place], [place]. The testing reveals: Patient Name: TAE RAM Collection Date: 12/04/2009 Ordering Physician: Omar Servin Received Date: 12/12/2009 Treating Physician: Eliza Report Date: 12/13/2009 Ordering Facility: [facility] Ref #: [id number] Specimen ID #: [id number] Date of ,Sex: 1955, F Fluorescence in situ Hybridization (FISH) Report HER-2/blanche Result: NOT AMPLIFIED The Her-2/lashell 17 ratio=1.0 Specimen Site/Type: Breast Tissue Specimen Fixative Type: Formalin Duration of Fixation: 12 Hours -- DEPARTMENT OF PATHOLOGY, [address] [place] [address] [facility] Permit #[id number] Gonzalo Lux M.D. Director Omar Servin M.D. Computer Systems Hardware Analyst Dir ibis -- -- RUN DATE: 12/18/09 [facility] NMI LIVE PAGE 5 RUN TIME: 927 Specimen Inquiry RUN USER: INTERFACE -- Name: TAE RAM Matilde Status: REG REF Re12/04/09 Age/Sex: 54/F Unit#: [id number] Location: [address] [place] [address]. : 59 -- -- CONTINUED -- ADDENDUM (Continued) Indication for Study: Evaluate For Her2/blanche Gene Amplification The average of Her-2/blanche copies per tile: 3.1 The average of cen17 copies per tile: 3.0 The cutoff point for assessing Her-2/blanche gene amplification is a Her-2/cen17 ratio greater than 2.2. The specimen is considered NOT AMPLIFIED for the Her-2/blanche gene. A total of 224 tiles from this patient's tissue were analyzed by the [employer] Auto[employer]ion System and were sufficient for analysis. FISH was performed using the [employer]? HER-2 DNA Probe Kit. Probe Name Detection Parameters Result [facility] [employer]ion amplification of the HER-2 gene NOT AMPLIFIED nuc ruthann(D17Z1,HER-2)x3 (Original [facility] report available upon request by calling Pathology at [phone]). Addendum Review (signature on file) GONZALO LUX MD 12/18/09 -- Signed Electronically by: OMAR SERVIN 12/06/09 1445 -- -- DEPARTMENT OF PATHOLOGY, [address] [place] [address] [facility] Permit #[id number] Gonzalo Lux M.D. Director Omar Servin M.D. Computer Systems Hardware Analyst Dir ibis -- Procedures Date CPT Code Description Status 03/10/2017 Mammogram Completed 03/25/2016 94851 Vision Test- screening test of visual acuity, Completed quantitative, bila 02/20/2015 Mammogram Completed 10/25/2014 29084 Remove Impacted Cerumen Completed 08/10/2014 Bone Mineral Density Test Completed 02/14/2014 Mammogram Completed 09/28/2013 98266 Pulse Oximetry Completed 12/21/2012 90324 Vision Test- screening test of visual acuity, Completed quantitative, bila 08/05/2011 Mammogram Completed 03/08/2011 Mammogram Completed 01/17/2011 Colonoscopy Completed 12/29/2009 Mammogram Completed 12/04/2009 Mammogram Completed 12/01/2009 Mammogram Completed 04/01/2001 62949 Remove Impacted Cerumen Completed Encounters Type Date Location Provider CPT E/M Dx Office Visit 06/10/2016 11:20a Main Office Jaclyn Anguiano M.D. 16831 E78.2 E55.9 R05 Office Visit 03/25/2016 6:50p Main Office Jaclyn Anguiano M.D. 74490 Z00.00 M54.5 M25.512 C50.912 E55.9 K21.9 Office Visit 03/05/2016 2:00p Main Office Quentin Saucedo 84124 J20.9 Office Visit 04/18/2015 11:20a [facility] Jaclyn Anguiano M.D. 22009 786.2 Office Visit 03/13/2015 6:30p Main Office Jaclyn Anguiano M.D. 85216 726.19 Office Visit 12/21/2014 4:00p [place] [address] 726.19 724.2 719.45 783.21 Office Visit 10/25/2014 3:45p [facility] Jonathan Ortiz-C 20356 380.4 Office Visit 09/08/2014 3:40p [facility] Jaclyn Anguiano M.D. 84770 726.19 V06.1 v06.5 v04.81 Office Visit 01/13/2014 9:10a [facility] Chandler Chavis M.D. 27038 535.50 Office Visit 09/28/2013 4:00p [facility] Alfie Ribeiro M.D. 28480 477.9 v04.81 Office Visit 12/21/2012 5:30p Main Office Jaclyn Anguiano M.D. 16135 V70.0 V72.31 174.9 V72.0 Office Visit 06/10/2012 10:00a [facility] Office Jade Sharp M.D. 84188 311 333.1 Office Visit 02/21/2012 3:00p [facility] Jade Sharp, 75212 333.1 M.D. Office Visit 02/17/2012 6:00p Main Office Jaclyn Anguiano M.D. 43057 719.45 Office Visit 12/20/2011 2:00p [facility] Jade Sharp, 70105 V70.0 M.D. 311 719.41 174.9 333.1 Office Visit 09/27/2011 2:40p [facility] Jade Sharp M.D. 88861 692.2 v04.81 719.41 Office Visit 06/06/2011 10:00a [facility] Africa Godinez, 86582 401.1 M.D. 311 530.81 Office Visit 04/25/2011 1:15p [facility] Imelda Cerrato [facility] 47417 923.9 Office Visit 12/07/2010 2:00p [facility] Africa Godinez, 85960 791.7 M.DJay V70.0 V72.31 174.9 Office Visit 09/20/2010 10:40a [facility] Africa Godinez 54987 611.79 M.D. Office Visit 11/30/2009 4:30p [facility] Office Imelda Baldwinrer, [facility] 79230 611.72 V04.81 Office Visit 09/19/2009 10:30a [facility] Jonathan Ortiz-C 95056 465.9 Office Visit 03/17/2008 3:20p [facility] Javi Pena M.D. 80959 724.2 Office Visit 03/03/2008 2:40p [facility] Javi Pena M.D. 28354 724.2 719.45 Office Visit 03/13/2006 3:30p [facility] Office Imelda Cerrato, [facility] 38372 536.8 380.4 Office Visit 09/16/2001 4:10p [facility] Sidney Upton M.D. 63630 Office Visit 11/28/2000 4:00p Main Office Sidney Upton M.D. 25588 Office Visit 10/15/2000 4:10p [facility] Sidney Upton M.D. 48980 Plan of Care 10/28/2017 - Jaclyn Anguiano M.D.Z00.00 Encntr for general adult medical exam w/o abnormal findingsComments:You are in excellent general health. I recommend regular physical exams with attention to good nutrition and exercise, eye exams every other year, and dental exams twice yearly. ~B_~U_Goals:~u_~b_2 fresh fruits daily3 helpings of fresh green and multicolored vegetablesEat from the whole color spectrum. 40-60 Oz water daily~B_~U_MOVE YOUR BODY.~u_~b_ Bodies were made to be moved. exercise 30 minutes at least 4-5 times weeklyFollow up:12-18 months.C50.912 Malignant neoplasm of unspecified site of left female breastComments:continue to follow up with Dr. Mackay.K21.9 Gastro- esophageal reflux disease without esophagitisComments:stable. continue occaissional omeprazole as needed.E55.9 Vitamin D deficiency, unspecifiedComments:continue your vitamin D.AllComments:~B_~U_Medication Management~b_~u_ Patient Understands medications she's taking? Yes No Are there Barriers to Adherence? Yes No Has the patient been asked about herbal supplements and therapies, and OTC meds? Yes No
[2017-11-12] MEDS ORDERED: Aspirin Low Dose CHEW TAB* 81 MG PO ONE (09:42)
--- NOTE | 2017-11-12 09:49 | UC ---
Cardiac HPI - HPI Summary HPI Summary: SUDDEN ONSET OF DULL MID STERNAL CP YESTERDAY AROUND 4:30PM WHILE AT REST. WORSE WITH BENDING OVER. TOOK PPI THINKING IT WAS REFLUX BUT THAT DID NOT HELP. PAIN WOKE HER FROM SLEEP SEVERAL TIMES LAST NIGHT. DENIES SOB, NAUSEA, SWEATS, FEVER. NO PERSONAL OR FAMILY H/O HEART DISEASE. - History of Current Complaint Chief Complaint: UCChestPain Stated Complaint: CHEST PAIN Time Seen by Provider: 11/12/17 09:24 Hx Obtained From: Patient, Family/Slime Plant Operator - Onset/Duration: Sudden Onset, Lasting Hours, Still Present Timing: Constant Initial Severity: Moderate Current Severity: Moderate Pain Intensity: 6 Chest Pain Location: Mid Sternal Character: Dull/Aching Aggravating Factor(s): Position Alleviating Factor(s): Nothing Associated Signs & Symptoms: Positive: Chest Pain. Negative: Numbness, Tingling , Dizziness, SOB, Fever, Diaphoresis, Nausea/Vomiting, Cough, Back Pain - Allergy/Home Medications Allergies/Adverse Reactions: Allergies Allergy/AdvReac Type Severity Reaction Status Date / Time Codeine Allergy Severe Vomiting Verified 11/12/17 09:27 Diazepam [From Valium] Allergy Severe Vomiting Verified 11/12/17 09:27 Loratadine [From Claritin] Allergy Severe Vomiting Verified 11/12/17 09:27 Amitriptyline Allergy Intermediate Dizziness Verified 11/12/17 09:27 Penicillins Allergy Intermediate Rash Verified 11/12/17 09:27 Home Medications: Home Medications Calcium Carbonate CHEW TAB* [Tums*] 1,000 mg PO BID 11/12/17 [History Confirmed 11/12/17] Cholecalciferol [Vitamin D3] 1,000 unit PO 11/12/17 [History] Omeprazole 40 mg PO 11/12/17 [History] PMH/Surg Hx/FS Hx/Imm Hx Cancer History: Breast Cancer - Surgical History Surgical History: Yes Surgery Procedure, Year, and Place: LEFT BREAST LUMPECTOMY, TONSILECTOMY, APPENDETOMY,EYE MUSCLE SURGERY - Family History Known Family History: Negative: Cardiac Disease, Hypertension - Social History Alcohol Use: Occasionally Substance Use Type: None Smoking Status (MU): Never Smoked Tobacco Review of Systems Constitutional: Negative Respiratory: Negative Cardiovascular: Chest Pain Gastrointestinal: Negative All Other Systems Reviewed And Are Negative: Yes Physical Exam Triage Information Reviewed: Yes Appearance: Well-Appearing, No Pain Distress, Well-Nourished Vital Signs: Initial Vital Signs Temp 99.5 F 11/12/17 09:18 Pulse 86 11/12/17 09:18 Resp 18 11/12/17 09:18 BP 106/66 11/12/17 09:18 Pulse Ox 100 11/12/17 09:18 Vital Signs Reviewed: Yes Eyes: Positive: Conjunctiva Clear ENT: Positive: Hearing grossly normal, TMs normal Neck: Positive: Supple, Nontender, No Lymphadenopathy Respiratory Exam: Normal Cardiovascular Exam: Normal Abdomen Description: Positive: Soft Musculoskeletal: Positive: No Edema Neurological: Positive: Alert Psychological: Positive: Age Appropriate Behavior Skin: Negative: rashes Diagnostics - EKG Cardiac Rate: NL Cardiac Rhythm: Sinus: Normal - 89 BPM Ectopy: None ST Segment: Normal - Assessment/Plan Course Of Treatment: TO [facility] BY PRIVATE CAR - Clinical Impression Provider Diagnoses: CHEST PAIN Discharge - Discharge Plan Condition: Stable Disposition: OTHER Discharge Disposition Comment: TO [facility] BY PRIVATE CAR Patient Education Materials: Chest Pain (ED) Referrals: Jaclyn Anguiano MD [Primary Care Provider] - If Needed Additional Instructions: GO DIRECTLY TO [facility] FROM HERE FOR FURTHER EVALUATION. ASA 81MG X 4 GIVEN HERE IN UC.
== END 2017-11-12 09:52 ==
LOC: UCEAST 09:09
DX: R07.89 Other chest pain (principal); Z72.89 Other problems related to lifestyle
CPT/HCPCS: 93005; 99212; A9270-GY; G0463

== ENCOUNTER 2017-11-12 10:12 | Emergency (ER) | payer OTHER ==
[2017-11-12 10:46] LABS: ABS Basophils 0 10^3/ul (0-0.2); ABS Eosinophils 0 10^3/ul (0-0.6); ABS Lymphocytes 1.3 10^3/ul (1.0-4.8); ABS Monocytes 1.4 10^3/ul (0-0.8); ABS Neutrophils 11.7 10^3/ul (1.5-7.7); ABS Nucleated RBC 0 10^3/ul; Eosinophil % 0.1 % (0-6); Hematocrit 44 % (35-47); Hemoglobin 14.8 g/dl (12.0-16.0); Lymphocyte % 8.9 % (25-47); Mean Corpuscular HGB Conc 34 g/dl (31-36); Mean Corpuscular Hemoglobin 32 pg (27-31); Mean Corpuscular Volume 95 fL (80-97); Mean Platelet Volume 8 um3 (7.4-10.4); Nucleated Red Blood Cells % 0; Platelet Count 244 10^3/ul (150-450); Red Blood Count 4.62 10^6/ul (4.0-5.4); Red Cell Distribution Width 12 % (10.5-15); White Blood Count 14.4 10^3/ul (3.5-10.8)
--- NOTE | 2017-11-12 11:00 | RAD ---
INDICATION: Chest pain. COMPARISON: Comparison is made with a prior chest x-ray study from December 06, 2013. TECHNIQUE: A portable view of the chest was obtained. FINDINGS: Cardiac and mediastinal contours appear to be within normal limits. The lungs are clear. No pleural effusion is seen. Several surgical clips are noted in the left axillary region. IMPRESSION: NO EVIDENCE FOR ACUTE DISEASE.
[2017-11-12 11:54] LABS: EGFR Non-African American 115.2 (>60)
[2017-11-12] MEDS ORDERED: NS 0.9% 1000 ML* 1,000 ML IV ONE (12:52)
[2017-11-12] MEDS ORDERED: Ketorolac INJ* 30 MG/ML 1 ML VIAL IV PUSH ONE (12:53)
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
[2017-11-12] MEDS ORDERED: Ketorolac INJ* 60 MG/2 ML VIAL ONE (13:09)
[2017-11-12 13:46] LABS: Urine Appearance Clear; Urine Blood Negative (Negative); Urine Color Straw; Urine Ketones Trace (Negative); Urine Protein Negative (Negative); Urine Specific Gravity 1.003 (1.010-1.030); Urine Urobilinogen Negative (Negative)
[2017-11-12 14:07] VITALS: BP 111/68
== END 2017-11-12 14:22 | disposition home or self-care (01) ==
LOC: ED 10:12
DX: R07.89 Other chest pain (principal); R05 Cough
CPT/HCPCS: 36415; 71045; 80053; 81003; 82550; 83605; 83880; 84484; 85025; 85379; 93005; 96361; 96374; 99283; J1885

== ENCOUNTER 2018-05-27 15:03 | Emergency (ER) | payer SELFPAY ==
[2018-05-27 18:17] LABS: ABS Basophils 0 10^3/ul (0-0.2); ABS Eosinophils 0 10^3/ul (0-0.6); ABS Lymphocytes 1.6 10^3/ul (1.0-4.8); ABS Monocytes 0.6 10^3/ul (0-0.8); ABS Neutrophils 5.6 10^3/ul (1.5-7.7); ABS Nucleated RBC 0 10^3/ul; Eosinophil % 0.5 % (0-6); Hematocrit 48 % (35-47); Hemoglobin 16.3 g/dl (12.0-16.0); Lymphocyte % 20.1 % (25-47); Mean Corpuscular HGB Conc 34 g/dl (31-36); Mean Corpuscular Hemoglobin 33 pg (27-31); Mean Corpuscular Volume 96 fL (80-97); Mean Platelet Volume 7.4 um3 (7.4-10.4); Nucleated Red Blood Cells % 0; Platelet Count 229 10^3/ul (150-450); Red Blood Count 4.98 10^6/ul (4.00-5.40); Red Cell Distribution Width 13 % (10.5-15); White Blood Count 7.8 10^3/ul (3.5-10.8)
--- NOTE | 2018-05-27 18:24 | RAD ---
INDICATION: Chest pain COMPARISON: November 12, 2017 TECHNIQUE: PA and lateral dual-energy views were obtained. FINDINGS: Bones/Soft Tissues: There are no acute bony findings. There is left chest surgery with axillary dissection Cardiomediastinal: The cardiomediastinal silhouette is normal. Lungs: There are no infiltrates. Pleura: There are no pleural effusions. Other: None IMPRESSION: NO ACTIVE DISEASE.
[2018-05-27] MEDS ORDERED: Aspirin 81 mg CHEW TAB* 81 MG TAB.CHEW PO ONE (20:17)
--- NOTE | 2018-05-27 20:55 | ED ---
HPI Chest Pain - HPI Summary HPI Summary: 62-year-old female presents with chest pain in the middle of her chest for the past day. She states that it is a dull ache. States it did radiate up to her jaw but that has sicne resolved. She states that chest pain has resolved for the past 2 hours. She states she took omeprazole which seemed to help. She states she's never had this pain before. She states that she did have chest pain in November that was due to a pulled muscle. She states that has not had a recent stress test. States she has not been coughing recently. No recent illness. No fevers. No palpitations. No shortness breath. No abdominal pain. No nausea or no vomiting. She is nonsmoker. She is not diabetic or denies any history of high blood pressure. She is breast cancer patient who is in remission. She denies any family history of cardiac disease. - History of Current Complaint Chief Complaint: EDChestWallPain Time Seen by Provider: 05/27/18 20:03 Pain Intensity: 3 - Allergy/Home Medications Allergies/Adverse Reactions: Allergies Allergy/AdvReac Type Severity Reaction Status Date / Time codeine Allergy Severe Vomiting Verified 05/27/18 15:15 diazepam [From Valium] Allergy Severe Vomiting Verified 05/27/18 15:15 loratadine Allergy Severe Vomiting Verified 05/27/18 15:15 amitriptyline Allergy Intermediate Dizziness Verified 05/27/18 15:15 Penicillins Allergy Intermediate Rash Verified 05/27/18 15:15 Home Medications: Home Medications Albuterol inh POWDER (NF) [Proair Respiclick] 2 puff INH Q4HR PRN 05/27/18 [ History Confirmed 05/27/18] Fluticasone/Vilanterol MDI(NF) [Breo Ellipta MDI 200/25(NF)] 1 puff INH DAILY [History Confirmed 05/27/18] [place]-3 Fatty Acids (Nf) [Fish Oil (NF)] 2,000 mg PO DAILY 05/27/18 [History Confirmed 05/27/18] Omeprazole CAP* [Prilosec CAP* 20 MG] 20 mg PO DAILY 05/27/18 [History Confirmed 05/27/18] PMH/Surg Hx/FS Hx/Imm Hx Endocrine/Hematology History: Denies: Hx Diabetes, Hx Thyroid Disease Cardiovascular History: Denies: Hx Hypertension, Hx Pacemaker/ICD Respiratory History: Denies: Hx Asthma, Hx Chronic Obstructive Pulmonary Disease (COPD) GI History: Reports: Hx Gastroesophageal Reflux Disease Denies: Hx Ulcer History: Denies: Hx Dialysis, Hx Renal Disease Musculoskeletal History: Denies: Hx Rheumatoid Arthritis, Hx Osteoporosis Sensory History: Denies: Hx Hearing Aid Psychiatric History: Denies: Hx Panic Disorder - Cancer History Cancer Type, Location and Year: lt breast ca s/p chemo radiation, lumpectomy Hx Chemotherapy: Yes Hx Radiation Therapy: Yes - Surgical History Surgery Procedure, Year, and Place: LEFT BREAST LUMPECTOMY, TONSILECTOMY, APPENDECTOMY, EYE MUSCLE SURGERY Hx Anesthesia Reactions: No - Immunization History Date of Influenza Vaccine: 08/26 Infectious Disease History: No Infectious Disease History: Denies: Hx Clostridium Difficile, Hx Hepatitis, Hx Human Immunodeficiency Virus (HIV), Hx of Known/Suspected MRSA, Hx Shingles, Hx Tuberculosis, Traveled Outside the [place] in Last 30 Days - Family History Known Family History: Negative: Cardiac Disease, Hypertension Family History: No FHx of blood clots - Social History Alcohol Use: Occasionally Substance Use Type: Reports: None Smoking Status (MU): Never Smoked Tobacco Review of Systems Negative: Fever Positive: Chest Pain Negative: Shortness Of Breath, Cough All Other Systems Reviewed And Are Negative: Yes Physical Exam Triage Information Reviewed: Yes Vital Signs On Initial Exam: Initial Vitals Temp Pulse Resp BP Pulse Ox 97.5 F 83 16 108/79 96 05/27/18 15:13 05/27/18 15:13 05/27/18 15:13 05/27/18 15:13 05/27/18 15:13 Vital Signs Reviewed: Yes Appearance: Positive: Well-Appearing Skin: Positive: Warm, Dry Head/Face: Positive: Normal Head/Face Inspection Eyes: Positive: Normal, Conjunctiva Clear ENT: Positive: Pharynx normal Respiratory/Lung Sounds: Positive: Clear to Auscultation, Breath Sounds Present , Other - reproducible chest pain Cardiovascular: Positive: Normal, RRR Abdomen Description: Positive: Nontender Bowel Sounds: Positive: Present Musculoskeletal: Positive: Normal Neurological: Positive: Normal Psychiatric: Positive: Normal Diagnostics - Vital Signs Vital Signs Temp Pulse Resp BP Pulse Ox 05/27/18 19:07 97.8 F 68 16 128/67 100 05/27/18 17:22 97.8 F 61 18 116/70 05/27/18 15:13 97.5 F 83 16 108/79 96 - Laboratory Lab Results: Lab Results 05/27/18 05/27/18 05/27/18 Range/Units 18:07 18:07 18:07 WBC 7.8 (3.5-10.8) 10^3/ul RBC 4.98 (4.00-5.40) 10^6/ul Hgb 16.3 H (12.0-16.0) g/dl Hct 48 H (35-47) % MCV 96 (80-97) fL MCH 33 H (27-31) pg MCHC 34 (31-36) g/dl RDW 13 (10.5-15) % Plt Count 229 (150-450) 10^3/ul MPV 7.4 (7.4-10.4) um3 Neut % (Auto) 71.6 (38-83) % Lymph % (Auto) 20.1 L (25-47) % [place] % (Auto) 7.2 H (0-7) % Eos % (Auto) 0.5 (0-6) % Baso % (Auto) 0.6 (0-2) % Absolute Neuts (auto) 5.6 (1.5-7.7) 10^3/ul Absolute Lymphs (auto) 1.6 (1.0-4.8) 10^3/ul Absolute Monos (auto) 0.6 (0-0.8) 10^3/ul Absolute Eos (auto) 0 (0-0.6) 10^3/ul Absolute Basos (auto) 0 (0-0.2) 10^3/ul Absolute Nucleated RBC 0 10^3/ul Nucleated RBC % 0 Sodium 139 (135-145) mmol/L Potassium 3.8 (3.5-5.0) mmol/L Chloride 101 (101-111) mmol/L Carbon Dioxide 30 (22-32) mmol/L Anion Gap 8 (2-11) mmol/L BUN 11 (6-24) mg/dL Creatinine 0.61 (0.51-0.95) mg/dL Est GFR ( Amer) 121.1 (>60) Est GFR (Non-Af Amer) 100.0 (>60) BUN/Creatinine Ratio 18.0 (8-20) Glucose 101 H (70-100) mg/dL Lactic Acid 0.6 (0.5-2.0) mmol/L Calcium 9.6 (8.6-10.3) mg/dL Total Bilirubin 0.60 (0.2-1.0) mg/dL AST 16 (13-39) U/L ALT 13 (7-52) U/L Alkaline Phosphatase 45 (34-104) U/L Troponin I 0.00 (<0.04) ng/mL Total Protein 6.7 (6.4-8.9) g/dL Albumin 4.4 (3.2-5.2) g/dL Globulin 2.3 (2-4) g/dL Albumin/Globulin Ratio 1.9 (1-3) Result Diagrams: 05/27/18 18:07 05/27/18 18:07 Lab Statement: Any lab studies that have been ordered have been reviewed, and results considered in the medical decision making process. - Radiology chest Xray Interpretation: No Acute Changes Radiology Interpretation Completed By: Radiologist - EKG No standard instances Cardiac Rate: NL EKG Rhythm: Sinus Rhythm ST Segment: Normal EKG Interpretation: sinus rhythm EKG Comparison: No Significant Change Re-Evaluation - Re-Evaluation First Eval Re-Evaluation Time: 21:36 Comment: still pain free Chest Pain Course/Dx - Course Course Of Treatment: 62-year-old female presents with chest pain in the middle of her chest for the past day. She states that it is a dull ache. States it did radiate up to her jaw but that has sicne resolved. She states that chest pain has resolved for the past 2 hours. She states she took omeprazole which seemed to help. She states she's never had this pain before. She states that she did have chest pain in November that was due to a pulled muscle. She states that has not had a recent stress test. States she has not been coughing recently. No recent illness. No fevers. No palpitations. No shortness breath. No abdominal pain. No nausea or no vomiting. She is nonsmoker. She is not diabetic or denies any history of high blood pressure. She is breast cancer patient who is in remission. She denies any family history of cardiac disease. On exam his reproducible chest pain. Lungs clear to auscultation. EKG similar to previous. d-dimer neg. troponinx2 normal and has been 6 hours since last had pain. will have follow up with cardiology for outpatient stress test as has been seen here for chest pain multiple times without stress test. heart score is 1. patient understand and agrees with plan. - Chest Pain Differential Diagnosis/HQI/PQRI: ACS, Chest Wall, GI Disease - Diagnoses Provider Diagnoses: Chest pain Discharge - Sign-Out/Discharge Documenting (check all that apply): Patient Departure - Discharge Plan Condition: Good Disposition: HOME Patient Education Materials: Chest Pain (ED) Referrals: Jaclyn Anguiano MD [Primary Care Provider] - Vanessa Schwarz MD [Medical Doctor] - Additional Instructions: Follow up with cardiology follow up with primary within 5 days Take Tylenol as needed for pain Return to ED if develop any new or worsening symptoms - Billing Disposition and Condition Condition: GOOD Disposition: Home
[2018-05-27 22:21] VITALS: BP 109/70
== END 2018-05-27 22:21 | disposition home or self-care (01) ==
LOC: ED 15:03
DX: R07.9 Chest pain, unspecified (principal); Z85.3 Personal history of malignant neoplasm of breast; Z88.0 Allergy status to penicillin; Z88.5 Allergy status to narcotic agent; Z88.8 Allergy status to other drugs, medicaments and biological substances; Z92.3 Personal history of irradiation; Z92.21 Personal history of antineoplastic chemotherapy
CPT/HCPCS: 36415; 71046; 80053; 83605; 84484; 85025; 85379; 93005; 99283; A9270-GY

== ENCOUNTER 2020-01-23 12:23 | Emergency (ER) | payer OTHER ==
[2020-01-23 14:15] VITALS: BP 119/76
--- NOTE | 2020-01-23 14:26 | UC ---
FLU HPI - HPI Summary HPI Summary: has had cold symps for 10-12 days, using OTC cold meds with some relief yesterday started to have fever and body aches - 100.9 today has fever, body aches and fatigue Denies travel or known contact with persons at risk for COVID-19 - History of Current Complaint Chief Complaint: UCGeneralIllness Stated Complaint: FEVER COUGH Time Seen by Provider: 01/23/20 14:09 Hx Obtained From: Patient ?: No Onset/Duration: Gradual Onset Severity Currently: None Severity Initially: Mild Pain Intensity: 0 - Allergy/Home Medications Allergies/Adverse Reactions: Allergies Allergy/AdvReac Type Severity Reaction Status Date / Time codeine Allergy Severe Vomiting Verified 01/23/20 14:13 diazepam [From Valium] Allergy Severe Vomiting Verified 01/23/20 14:13 loratadine Allergy Severe Vomiting Verified 01/23/20 14:13 amitriptyline Allergy Intermediate Dizziness Verified 01/23/20 14:13 Penicillins Allergy Intermediate Rash Verified 01/23/20 14:13 Home Medications: Home Medications Ascorbic Acid TAB* [Vitamin C TAB*] 500 mg PO DAILY 03/04/14 [History Confirmed 01/23/20] Calcium Carbonate [Calcium 600] 600 mg PO DAILY 11/12/17 [History Confirmed ] Cholecalciferol TAB* [Vitamin D TAB*] 2,000 unit PO DAILY 11/12/17 [History Confirmed 01/23/20] Multivitamins/Minerals TAB* [Theragran/minerals TAB*] 1 tab PO DAILY 11/12/17 [ History Confirmed 01/23/20] Vitamin E CAP* 400 unit PO DAILY 11/12/17 [History Confirmed 01/23/20] Acetaminophen TAB* [Tylenol TAB*] 650 mg PO Q4H PRN 01/01/18 [History Confirmed 01/23/20] Benzonatate CAP* [Tessalon 100 MG CAP*] 100 mg PO TID PRN 01/01/18 [History Confirmed 01/23/20] Fexofenadine (NF) [Wendy 180 (NF)] 180 mg PO DAILY PRN 01/01/18 [History Confirmed 01/23/20] Ibuprofen TAB* [Motrin TAB* 600 MG] 600 mg PO Q8H PRN 01/01/18 [History Confirmed 01/23/20] Albuterol inh POWDER (NF) [Proair Respiclick] 2 puff INH Q4HR PRN 05/27/18 [ History Confirmed 01/23/20] Fluticasone/Vilanterol MDI(NF) [Breo Ellipta MDI 200/25(NF)] 1 puff INH DAILY [History Confirmed 01/23/20] [place]-3 Fatty Acids (Nf) [Fish Oil (NF)] 2,000 mg PO DAILY 05/27/18 [History Confirmed 01/23/20] Omeprazole CAP (NF) [Prilosec CAP* 20 MG] 20 mg PO DAILY 05/27/18 [History Confirmed 01/23/20] PMH/Surg Hx/FS Hx/Imm Hx Previously Healthy: Yes - Surgical History Surgical History: Yes Surgery Procedure, Year, and Place: LEFT BREAST LUMPECTOMY, TONSILECTOMY, APPENDECTOMY, EYE MUSCLE SURGERY - Family History Known Family History: Negative: Cardiac Disease, Hypertension Family History: No FHx of blood clots - Social History Occupation: Employed Part-time Lives: With Family Alcohol Use: Rare Substance Use Type: None Smoking Status (MU): Never Smoked Tobacco Review of Systems All Other Systems Reviewed And Are Negative: Yes Constitutional: Positive: Fever, Chills, Fatigue Skin: Positive: Negative Respiratory: Positive: Cough. Negative: Shortness Of Breath Cardiovascular: Positive: Negative Neurological/Mental Status: Positive: Negative. Negative: Headache Psychological: Positive: Negative Is Patient Immunocompromised?: No Physical Exam Triage Information Reviewed: Yes Appearance: Well-Appearing, No Pain Distress, Well-Nourished Vital Signs: Initial Vital Signs Temp 99 F 01/23/20 14:08 Pulse 110 01/23/20 14:08 Resp 20 01/23/20 14:08 BP 119/76 01/23/20 14:08 Pulse Ox 98 01/23/20 14:08 Vital Signs Reviewed: Yes Eyes: Positive: Conjunctiva Clear ENT: Positive: Pharynx normal - clear PND, Nasal congestion Respiratory Exam: Normal Respiratory: Positive: Lungs clear, Other: - no cough on exam Cardiovascular Exam: Normal Cardiovascular: Positive: RRR Musculoskeletal Exam: Normal Neurological Exam: Normal Psychological Exam: Normal Skin Exam: Normal Skin: Negative: Rashes Flu Course/Dx - Differential Dx/Diagnosis Differential Diagnosis/HQI/PQRI: Influenza, Upper Respiratory Infection Provider Diagnosis: Upper respiratory infection Discharge ED - Sign-Out/Discharge Documenting (check all that apply): Patient Departure All imaging exams completed and their final reports reviewed: No Studies - Discharge Plan Condition: Good Disposition: HOME Patient Education Materials: Upper Respiratory Infection (DC) Referrals: Jaclyn Anguiano MD [Primary Care Provider] - 2 Days (if no better) Additional Instructions: drink plenty of fluids and rest use Tylenol or ibuprofen for fever and body aches return if you symptoms worsen - Billing Disposition and Condition Condition: GOOD Disposition: Home
[2020-01-23 14:41] LABS: Influenza A Molecular Negative (Negative); Influenza B Molecular Negative (Negative)
== END 2020-01-23 15:05 | disposition home or self-care (01) ==
LOC: UCEAST 12:23
DX: J06.9 Acute upper respiratory infection, unspecified (principal); Z88.0 Allergy status to penicillin; Z88.5 Allergy status to narcotic agent; Z88.8 Allergy status to other drugs, medicaments and biological substances
CPT/HCPCS: 99211; G0463